=== PATIENT | male | born 1955 ===

== ENCOUNTER 2021-07-13 21:56 | Inpatient (IN) | payer MEDICARE, BC ==
--- NOTE | 2021-07-13 22:33 | EDM.PDOC ---
ED HPI GENERAL MEDICAL PROBLEM - General Stated Complaint: BLOOD IN STOOL, DIZZINESS, WEAKNESS Time Seen by Provider: 07/13/21 22:13 Source of Information: Reports: Patient History Limitations: Reports: No Limitations - History of Present Illness INITIAL COMMENTS - FREE TEXT/NARRATIVE: Nathan Donald is a 66-year-old male presents ambulatory with his during the [place] pandemic with 4 dark stools over the last day and a half. He now feels dizzy and lightheaded. He has had no fevers, runny nose, sore throat, cough, change in taste or smell. No chest pain or shortness of breath. He reports he feels lightheaded when he stands upright. Patient is anticoagulated his last INR was proxy 1 month ago. 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 He denies any history previously of GI bleed. He does not consume alcohol. He is on no recent steroids. He is not a current smoker. He has had a reported normal previous screening colonoscopy. Patient has any abdominal pain. He describes the stool is dark and black. No chest pain or shortness of breath. No headache, confusion or other acute complaints. Patient is Covid vaccinated. He is not any Covid symptoms. - Related Data Allergies Allergy/AdvReac Type Severity Reaction Status Date / Time No Known Allergies Allergy Verified 07/13/21 22:17 Home Meds: Home Meds Simvastatin 1 tab PO DAILY 07/13/21 [History] Tamsulosin [Flomax] 1 tab PO DAILY 07/13/21 [History] Warfarin [Coumadin] 0.5 tab PO ASDIRECTED 07/13/21 [History] Warfarin [Coumadin] 1 tab PO DAILY 07/13/21 [History] Past Medical History Cardiovascular History: Reports: High Cholesterol Respiratory History: Reports: PE Genitourinary History: Reports: BPH Social & Family History - Tobacco Use Tobacco Use Status *Q: Never Tobacco User ED ROS GENERAL - Review of Systems Review Of Systems: See Below Constitutional: Reports: No Symptoms, Weakness HEENT: Reports: No Symptoms Respiratory: Reports: No Symptoms Cardiovascular: Reports: No Symptoms GI/Abdominal: Reports: Black Stool, Melena. Denies: Abdominal Pain, Hematemesis, Nausea : Denies: Hematuria Musculoskeletal: Reports: No Symptoms Skin: Reports: No Symptoms Neurological: Reports: No Symptoms Psychiatric: Reports: No Symptoms Hematologic/Lymphatic: Reports: No Symptoms Immunologic: Reports: No Symptoms Free Text/Narrative/Comment: All other 10 systems are negative. ED EXAM, GI/ABD - Physical Exam Exam: See Below Exam Limited By: No Limitations General Appearance: Alert Eyes: Bilateral: Normal Appearance Ears: Normal External Exam Nose: Normal Inspection Throat/Mouth: Other (wearing eleuterio) Head: Normocephalic Neck: Normal Inspection Respiratory/Chest: No Respiratory Distress, Lungs Clear Cardiovascular: Normal Peripheral Pulses, No JVD, Tachycardia GI/Abdominal Exam: Normal Bowel Sounds, Soft, Non-Tender, No Distention, No Mass Rectal (Males) Exam: Normal Rectal Tone, Black Stool, Other (purple to black stool) Back Exam: Normal Inspection, Full Range of Motion Extremities: Normal Inspection, Normal Range of Motion, No Pedal Edema Neurological: Alert, Oriented, Normal Cognition, No Motor/Sensory Deficits Psychiatric: Normal Affect, Normal Mood Skin Exam: Warm, Dry, No Rash. No: Cyanosis Lymphatic: No Adenopathy #1 Interpretation EKG Date: 07/13/21 Time: 23:08 Rhythm: Other (sinus tachy) Rate (Beats/Min): 101 [place]: Normal P-Wave: Present QRS: Normal ST-T: Normal QT: Normal Comparison: NA - No Prior EKG Course - Vital Signs Text/Narrative:: History exam completed. Patient has dark black to purple stools on rectal examination. He is tachycardic. He is on Coumadin. Patient based on vital signs and history require inpatient admission for ongoing hydration he was typed and screened placed n.p.o. Anticipate the need for potential transfusion and correction of coagulopathy. We will treat him with IV Protonix. There is no history of hepatic disease or alcohol use or abuse to suggest variceal bleed. Patient had IV access obtained. He was placed n.p.o. He was placed on monitoring manager. A stat EKG is reviewed. Responded nicely to IV fluids and his heart rate improved prior to IV fluid ministration. 2346: Laboratory studies reviewed including hemoglobin and INR. I spoke with Mary Winter the admitting hospitalist who accepts admission. I ordered 5 mg of IV vitamin K. We will hold the patient's Coumadin and the admitting provider will coordinate with surgery for endoscopy. CLOtest is pending. Patient has no Covid symptoms at this time. [facility] bed. 00 15 a.m. on 07/14/2021. Hospitalist has accepted. Covid test is negative. Admit to med telemetry bed. Patient's been typed and screened. IV vitamin K administered. MDM: Patient presents with acute GI bleed in setting of long-term Coumadin use for remote DVT. Patient will require admission and serial hemoglobins I have started wityh correction of coagulopathy and anticipate potential transfusion. After ongoing resuscitation he would benefit from endoscopy which will becoordinated by admitting service with the on callsurgeon. Patient currently does not have indication for transfusion but may require transfusion if his hemoglobin continues to decrease. He has been typed and screened anticipating this. Benefit of Vit K vs risk reviewed. I suspect patient has a lower GI bleed. stools is purple in ED to dark but not black. 0018: admit to Tele bed: Mary Carpenter (in ED currently) accepts and has updated personnel administrator surgeon. Last Recorded V/S: Last Vital Signs Temp 36.2 C 07/13/21 22:26 Pulse 125 H 07/13/21 22:26 Resp 16 07/13/21 22:26 BP 107/68 07/13/21 22:26 Pulse Ox 97 07/13/21 22:26 - Orders/Labs/Meds Orders: Active Orders 24 hr Category Date Time Status OCCULT BLOOD SCREEN [OP] Urgent Lab 07/13/21 22:48 Ordered TYPE AND SCREEN [BBK] Stat Lab 07/13/21 23:05 Received Phytonadione [AquaMephyton] 5 mg Med 07/13/21 23:45 Active Sodium Chloride 0.9% [Normal Saline] 50 ml IV NOW Sodium Chloride 0.9% [Normal Saline] 500 ml Med 07/13/21 23:00 Active IV .BOLUS EKG 12 Lead [EK] Stat Ther 07/13/21 22:53 Ordered Medication Orders Sodium Chloride (Normal Saline) 500 mls @ 1,000 mls/hr IV .BOLUS MARTINA Last Admin: 07/13/21 23:19 Dose: 1,000 mls/hr Documented by: ASHUTOSH Phytonadione 5 mg/ Sodium (Chloride) 50.5 mls @ 100 mls/hr IV NOW ONE Stop: 07/14/21 00:15 Labs: Laboratory Tests 07/13/21 07/13/21 07/13/21 Range/Units 23:05 23:05 23:05 WBC 9.0 (4.5-11.0) K/uL RBC 3.18 L (4.30-5.90) M/uL Hgb 9.5 L (12.0-15.0) g/dL Hct 28.9 L (40.0-54.0) % MCV 91 (80-98) fL MCH 30 (27-31) pg MCHC 33 (32-36) % Plt Count 168 (150-400) K/uL Neut % (Auto) 66.8 H (36-66) % Lymph % (Auto) 23.2 L (24-44) % [place] % (Auto) 8.2 H (2-6) % Eos % (Auto) 1.4 L (2-4) % Baso % (Auto) 0.4 (0-1) % PT 28.9 H (9.5-12.0) sec INR 2.70 H (0.80-1.20) Sodium 138 L (140-148) mmol/L Potassium 4.0 (3.6-5.2) mmol/L Chloride 105 (100-108) mmol/L Carbon Dioxide 23 (21-32) mmol/L Anion Gap 14.0 (5.0-14.0) mmol/L BUN 37 H (7-18) mg/dL Creatinine 1.5 H (0.8-1.3) mg/dL Est Cr Clr Drug Dosing 46.87 mL/min Estimated GFR (MDRD) 47 L (>60) Glucose 126 H (74-106) mg/dL Calcium 7.9 L (8.5-10.1) mg/dL Total Bilirubin 0.2 (0.2-1.0) mg/dL AST 13 L (15-37) U/L ALT 23 (12-78) U/L Alkaline Phosphatase 48 (46-116) U/L Total Protein 5.5 L (6.4-8.2) g/dL Albumin 2.9 L (3.4-5.0) g/dL Globulin 2.6 (2.3-3.5) g/dL Albumin/Globulin Ratio 1.1 L (1.2-2.2) SARS CoV-2 RNA Rapid MARQUITA 07/13/21 Range/Units 23:05 WBC (4.5-11.0) K/uL RBC (4.30-5.90) M/uL Hgb (12.0-15.0) g/dL Hct (40.0-54.0) % MCV (80-98) fL MCH (27-31) pg MCHC (32-36) % Plt Count (150-400) K/uL Neut % (Auto) (36-66) % Lymph % (Auto) (24-44) % [place] % (Auto) (2-6) % Eos % (Auto) (2-4) % Baso % (Auto) (0-1) % PT (9.5-12.0) sec INR (0.80-1.20) Sodium (140-148) mmol/L Potassium (3.6-5.2) mmol/L Chloride (100-108) mmol/L Carbon Dioxide (21-32) mmol/L Anion Gap (5.0-14.0) mmol/L BUN (7-18) mg/dL Creatinine (0.8-1.3) mg/dL Est Cr Clr Drug Dosing mL/min Estimated GFR (MDRD) (>60) Glucose (74-106) mg/dL Calcium (8.5-10.1) mg/dL Total Bilirubin (0.2-1.0) mg/dL AST (15-37) U/L ALT (12-78) U/L Alkaline Phosphatase (46-116) U/L Total Protein (6.4-8.2) g/dL Albumin (3.4-5.0) g/dL Globulin (2.3-3.5) g/dL Albumin/Globulin Ratio (1.2-2.2) SARS CoV-2 RNA Rapid MARQUITA Negative Meds: Medications Generic Name Dose Route Start Last Admin Trade Name Remingtonq PRN Reason Stop Dose Admin Sodium Chloride 500 mls @ 1,000 mls/hr 07/13/21 23:00 07/13/21 23:19 Normal Saline IV 1,000 mls/hr .BOLUS MARTINA Administration Phytonadione 5 mg/ Sodium 50.5 mls @ 100 mls/hr 07/13/21 23:45 Chloride IV 07/14/21 00:15 NOW ONE Discontinued Medications Generic Name Dose Route Start Last Admin Trade Name Mamadou PRN Reason Stop Dose Admin Pantoprazole Sodium 40 mg 07/13/21 22:51 07/13/21 23:22 Pantoprazole 40 Mg Vial IVPUSH 07/13/21 22:52 40 mg ONETIME ONE Administration Departure - Departure Time of Disposition: 23:48 (mary carpenter, who is coordinating with surgery) Disposition: Admitted As Inpatient 66 Condition: Fair Clinical Impression: GI bleed, half-way (current) use of anticoagulants, Tachycardia - Discharge Information Sepsis Event Note (ED) - Evaluation Sepsis Screening Result: No Definite Risk - Focused Exam Vital Signs: Vital Signs Temp Pulse Resp BP Pulse Ox 07/13/21 22:26 36.2 C 125 H 16 107/68 97 07/13/21 22:10 36.2 C 125 H 16 107/68 97 - My Orders Last 24 Hours: My Active Orders 07/13/21 22:48 OCCULT BLOOD SCREEN [OP] Urgent 07/13/21 22:53 EKG 12 Lead [EK] Stat 07/13/21 23:00 Sodium Chloride 0.9% [Normal Saline] 500 ml IV .BOLUS 07/13/21 23:05 TYPE AND SCREEN [BBK] Stat 07/13/21 23:45 Phytonadione [AquaMephyton] 5 mg Sodium Chloride 0.9% [Normal Saline] 50 ml IV NOW - Assessment/Plan Last 24 Hours: My Active Orders 07/13/21 22:48 OCCULT BLOOD SCREEN [OP] Urgent 07/13/21 22:53 EKG 12 Lead [EK] Stat 07/13/21 23:00 Sodium Chloride 0.9% [Normal Saline] 500 ml IV .BOLUS 07/13/21 23:05 TYPE AND SCREEN [BBK] Stat 07/13/21 23:45 Phytonadione [AquaMephyton] 5 mg Sodium Chloride 0.9% [Normal Saline] 50 ml IV NOW
[2021-07-13] MEDS ORDERED: Pantoprazole 40 MG Vial IVPUSH ONE (22:51)
[2021-07-13] MEDS ORDERED: Sodium Chloride 0.9% 500 ML IV SCH (23:00)
[2021-07-13] MEDS ORDERED: Phytonadione 5 MG in Sodium Chloride 0.9% 50 ML IV ONE (23:45)
--- NOTE | 2021-07-14 00:31 | PCM.HP.2 ---
H&P History of Present Illness - General Date of Service: 07/13/21 Admit Problem/Dx: Admission Diagnosis/Problem Admission Diagnosis/Problem Gastrointestinal hemorrhage Source of Information: Patient, Family () History Limitations: Reports: No Limitations - History of Present Illness Initial Comments - Free Text/Narative: chief complaint: rectal bleed Copy ER note Nathan Donald is a 66-year-old male presents ambulatory with his during the COVID pandemic with 4 dark stools over the last day and a half. He now feels dizzy and lightheaded. He has had no fevers, runny nose, sore throat, cough, change in taste or smell. No chest pain or shortness of breath. He reports he feels lightheaded when he stands upright. Patient is anticoagulated his last INR 1 month ago. 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 He denies any history previously of GI bleed. He does not consume alcohol. He is on no recent steroids. He is not a current smoker. He has had a reported normal previous screening colonoscopy 4 years ago in [facility]. Patient denies any abdominal pain. He describes the stool is dark and black. No chest pain or shortness of breath. No headache, confusion or other acute complaints. Onset of Symptoms: Reports: Gradual Symptom Onset Date: 07/12/21 Duration of Symptoms: Reports: Day(s): Location: Reports: Generalized (weakness- ) Quality: Reports: Other (weakness, light headed) Improves with: Reports: None Worsens with: Reports: None Context: Reports: Other (multi black liquid stools x 2 days) Associated Symptoms: Reports: Weakness - Related Data Allergies/Adverse Reactions: Allergies Allergy/AdvReac Type Severity Reaction Status Date / Time No Known Allergies Allergy Verified 07/13/21 22:17 Home Medications: Home Meds Simvastatin 1 tab PO DAILY 07/13/21 [History] Tamsulosin [Flomax] 1 tab PO DAILY 07/13/21 [History] Warfarin [Coumadin] 0.5 tab PO ASDIRECTED 07/13/21 [History] Warfarin [Coumadin] 1 tab PO DAILY 07/13/21 [History] Past Medical History Cardiovascular History: Reports: High Cholesterol Respiratory History: Reports: PE Genitourinary History: Reports: BPH Social & Family History - Tobacco Use Tobacco Use Status *Q: Never Tobacco User - Living Situation & Occupation Living situation: Reports: Occupation: Retired (lives with in [place], [place]. has two children) H&P Review of Systems - Review of Systems: Review Of Systems: See Below General: Reports: Weakness HEENT: Reports: No Symptoms Pulmonary: Reports: No Symptoms Cardiovascular: Reports: No Symptoms Gastrointestinal: Reports: Black Stool (3 on Sat. & 4 on Wednesday), Diarrhea (multi liquid black stools) Genitourinary: Reports: No Symptoms Musculoskeletal: Reports: No Symptoms Skin: Reports: No Symptoms Psychiatric: Reports: No Symptoms Neurological: Reports: Weakness Hematologic/Lymphatic: Reports: No Symptoms Immunologic: Reports: No Symptoms Exam - Exam Exam: See Below - Vital Signs Vital Signs: Last Vital Signs Temp 97.1 F 07/13/21 22:26 Pulse 125 H 07/13/21 22:26 Resp 16 07/13/21 22:26 BP 107/68 07/13/21 22:26 Pulse Ox 97 07/13/21 22:26 Weight: 212 lb 3.2 oz - Exam Quality Assessment: DVT Prophylaxis General: Alert, Oriented, Cooperative, Other (neat and well groomed. pleasant) HEENT: PERRLA, Hearing Intact, Mucosa Moist & [place], Nares Patent, Normal Nasal Septum, Posterior Pharynx Clear, Conjunctiva Clear, EOMI, EACs Clear, TMs Clear Neck: Supple, Trachea Midline, 2 Lungs: Clear to Auscultation, Normal Respiratory Effort Cardiovascular: Regular Rate, Regular Rhythm GI/Abdominal Exam: Normal Bowel Sounds, Soft, Non-Tender, No Organomegaly, No Di stention, No Abnormal Bruit, No Mass, Pelvis Stable (Male) Exam: Deferred Rectal (Males) Exam: Deferred Back Exam: Normal Inspection, Full Range of Motion, NT Extremities: Normal Inspection, Normal Range of Motion, Non-Tender, No Pedal Edema, Normal Capillary Refill Peripheral Pulses: 2+: Radial (L), Radial (R), Dorsalis Pedis (L), Dorsalis Pedis (R) Skin: Warm, Dry, Intact Neurological: Cranial Nerves Intact, Reflexes Equal Bilateral Neuro Extensive - Mental Status: Alert, Oriented x3, Normal Mood/Affect, Normal Cognition Neuro Extensive - Motor, Sensory, Reflexes: CN II-XII Intact, Normal Gait, Normal Reflexes Psychiatric: Alert, Normal Affect, Normal Mood - Patient Data Lab Results Last 24 hrs: Laboratory Results - last 24 hr 07/13/21 07/13/21 07/13/21 Range/Units 23:05 23:05 23:05 WBC 9.0 (4.5-11.0) K/uL RBC 3.18 L (4.30-5.90) M/uL Hgb 9.5 L (12.0-15.0) g/dL Hct 28.9 L (40.0-54.0) % MCV 91 (80-98) fL MCH 30 (27-31) pg MCHC 33 (32-36) % Plt Count 168 (150-400) K/uL Neut % (Auto) 66.8 H (36-66) % Lymph % (Auto) 23.2 L (24-44) % [place] % (Auto) 8.2 H (2-6) % Eos % (Auto) 1.4 L (2-4) % Baso % (Auto) 0.4 (0-1) % PT 28.9 H (9.5-12.0) sec INR 2.70 H (0.80-1.20) Sodium 138 L (140-148) mmol/L Potassium 4.0 (3.6-5.2) mmol/L Chloride 105 (100-108) mmol/L Carbon Dioxide 23 (21-32) mmol/L Anion Gap 14.0 (5.0-14.0) mmol/L BUN 37 H (7-18) mg/dL Creatinine 1.5 H (0.8-1.3) mg/dL Est Cr Clr Drug Dosing 46.87 mL/min Estimated GFR (MDRD) 47 L (>60) Glucose 126 H (74-106) mg/dL Calcium 7.9 L (8.5-10.1) mg/dL Total Bilirubin 0.2 (0.2-1.0) mg/dL AST 13 L (15-37) U/L ALT 23 (12-78) U/L Alkaline Phosphatase 48 (46-116) U/L Total Protein 5.5 L (6.4-8.2) g/dL Albumin 2.9 L (3.4-5.0) g/dL Globulin 2.6 (2.3-3.5) g/dL Albumin/Globulin Ratio 1.1 L (1.2-2.2) SARS CoV-2 RNA Rapid MARQUITA 07/13/21 Range/Units 23:05 WBC (4.5-11.0) K/uL RBC (4.30-5.90) M/uL Hgb (12.0-15.0) g/dL Hct (40.0-54.0) % MCV (80-98) fL MCH (27-31) pg MCHC (32-36) % Plt Count (150-400) K/uL Neut % (Auto) (36-66) % Lymph % (Auto) (24-44) % [place] % (Auto) (2-6) % Eos % (Auto) (2-4) % Baso % (Auto) (0-1) % PT (9.5-12.0) sec INR (0.80-1.20) Sodium (140-148) mmol/L Potassium (3.6-5.2) mmol/L Chloride (100-108) mmol/L Carbon Dioxide (21-32) mmol/L Anion Gap (5.0-14.0) mmol/L BUN (7-18) mg/dL Creatinine (0.8-1.3) mg/dL Est Cr Clr Drug Dosing mL/min Estimated GFR (MDRD) (>60) Glucose (74-106) mg/dL Calcium (8.5-10.1) mg/dL Total Bilirubin (0.2-1.0) mg/dL AST (15-37) U/L ALT (12-78) U/L Alkaline Phosphatase (46-116) U/L Total Protein (6.4-8.2) g/dL Albumin (3.4-5.0) g/dL Globulin (2.3-3.5) g/dL Albumin/Globulin Ratio (1.2-2.2) SARS CoV-2 RNA Rapid MARQUITA Negative Result Diagrams: 07/13/21 23:05 07/13/21 23:05 Sepsis Event Note - Evaluation Sepsis Screening Result: No Definite Risk - Focused Exam Vital Signs: Vital Signs Temp Pulse Resp BP Pulse Ox 07/13/21 22:26 97.1 F 125 H 16 107/68 97 07/13/21 22:10 97.1 F 125 H 16 107/68 97 - Problem List (1) GI bleed SNOMED Code(s): 49881770 ICD Code: K92.2 - GASTROINTESTINAL HEMORRHAGE, UNSPECIFIED Status: Acute Priority: High Current Visit: Yes Qualifiers: GI bleed type/associated pathology: unspecified gastrointestinal hemorrhage type Qualified Code(s): K92.2 - Gastrointestinal hemorrhage, unspecified (2) nursing home (current) use of anticoagulants SNOMED Code(s): 589903501 ICD Code: Z79.01 - SKILLED NURSING (CURRENT) USE OF ANTICOAGULANTS Status: Acute Priority: High Current Visit: Yes Problem List Initiated/Reviewed/Updated: Yes Orders Last 24hrs: Active Orders 24 hr Category Date Time Status Patient Status Manage Transfer [TRANSFER] Routine ADT 07/13/21 23:53 Active OCCULT BLOOD SCREEN [OP] Urgent Lab 07/13/21 22:48 Ordered TYPE AND SCREEN [BBK] Stat Lab 07/13/21 23:05 Received Sodium Chloride 0.9% [Normal Saline] 500 ml Med 07/13/21 23:00 Active IV .BOLUS Resuscitation Status Routine Resus Stat 07/13/21 23:55 Ordered EKG 12 Lead [EK] Stat Ther 07/13/21 22:53 Ordered Medication Orders Sodium Chloride (Normal Saline) 500 mls @ 1,000 mls/hr IV .BOLUS MARTINA Last Admin: 07/13/21 23:19 Dose: 1,000 mls/hr Documented by: ASHUTOSH Assessment/Plan Comment:: ASSESSMENT / PLAN This is a 66 year old male present to the ER with his . They report on Wednesday he has 3 black diarrhea stools and 4 black stool on Wednesday, they came to the ER for evaluation when he got up from the chair and almost fainted. continue to have dizziness with standing. Denies any fever, chills, nausea, vomiting, chest pain or shortness of breath. He has been vaccinated for Covid. Last Colonoscopy 4 years ago in [facility] [place] which was negative. He had the colonoscopy because his Sister at age 64 years of colon cancer. ER Lab values = CBC WBC 9.0, hemoglobin 9.5, hct 28.9, plts 168 Chemistries Na 138, K+4.0, cl 105, anion gap 14, BUN 37, Cr 1.5, glucose 126, Co2 23, INR 2 ..70, PT 28.9 Plan admit for admission. Mr. and Mrs. Donald agree with plan of care. GI Bleed -Admit to [address] [place] [address] for further monitoring -Regular diet -IV Fluids Normal Saline at 125 mL per hour -medication for pain and nausea ordered -consult with Dr. Tuttle, Surgeon, continue plan of care. -Advise to notify nurses of any more dark stools -type and cross for blood products -And a.m. labs: CBC, BMP Chronic coagulations for PE x2 - this happed 15 years ago, has been on Coumadin since -hold Coumadin -IV vitamin K 5 mg given in ER -recheck INR/PT in am Maintenance issues -Orders home meds reviewed and ordered as appropriate -Nutrition: regular diet -[place] catheter not indicated at this time -DVT: SCD -PPI; IV Protonix 40mg every 12 hours CODE STATUS: FULL Admission status: Admit to [address] [place] [address] This Patient is Admitted for Inpatient Services and is Medically Appropriate and Meets Medical Necessity for Inpatient Admission. I Reasonably Expect the Patient will Require Inpatient Services that Span a Period of Over 2 Midnights. My Rationale for Medically Necessary Inpatient Care will be Found in the Admission History & Physical and Progress Notes. I Reasonably Expect the Patient to be Discharged or Transferred within 96 Hours After Admission to this Critical Access Hospital. Disposition: home with Primary care provider: Raza Blair NP Hospitalist: Dr. Lucas Surgery Service- Dr. Tuttle - Mortality Measure Prognosis:: Good
[2021-07-14] MEDS ORDERED: Ondansetron 4 MG Tab.DIS PO PRN (00:34)
[2021-07-14] MEDS ORDERED: Ondansetron 4 MG/2 ML SDV IV PRN (00:34)
[2021-07-14] MEDS ORDERED: Albuterol 0.083% 2.5 MG/3 ML Neb Soln NEB PRN (00:34)
[2021-07-14] MEDS ORDERED: Acetaminophen 325 MG Tab PO PRN (00:34)
[2021-07-14] MEDS ORDERED: Sodium Chloride 0.9% 1,000 ML IV SCH (00:34)
[2021-07-14] MEDS ORDERED: Morphine 2 MG/ML SYRINGE IVPUSH PRN (00:34)
[2021-07-14] MEDS ORDERED: Propofol 200 MG/20 ML SDV ONE (08:44)
[2021-07-14] MEDS ORDERED: Pantoprazole 40 MG Vial IV SCH ×2 (09:00→09:10)
[2021-07-14] MEDS: Tamsulosin 0.4 MG Cap.ER PO SCH (09:50)
[2021-07-14] MEDS: Pravastatin 20 MG Tab PO SCH (09:50)
[2021-07-14] MEDS ORDERED: Bisacodyl 5 MG Tab PO ONE (13:33)
[2021-07-14] MEDS ORDERED: Polyethylene Glycol 3350 Powder 238 GM Bot PO ONE (13:33)
--- NOTE | 2021-07-14 13:35 | PCM.PN ---
- General Info Date of Service: 07/14/21 Subjective Update: Patient had declining blood pressures and some nausea/dizziness this morning. He has not had any recurrence of bleeding since admission. EGD this morning was unremarkable. Hemoglobin level has drifted down further since admission. No abdominal pain. No history of GI bleeding. INR was still supratherapeutic. Patient did receive a unit of blood this morning because of the hypotension and also received 2 units of fresh frozen plasma. Functional Status: Reports: Pain Controlled - Review of Systems General: Denies: Fever Gastrointestinal: Denies: Abdominal Pain - Patient Data Vitals - Most Recent: Last Vital Signs Temp 34.7 C L 07/14/21 13:15 Pulse 106 H 07/14/21 13:15 Resp 18 07/14/21 13:15 BP 107/64 07/14/21 13:15 Pulse Ox 98 07/14/21 13:15 Weight - Most Recent: 96.162 kg I&O - Last 24 Hours: Intake & Output 07/13/21 07/14/21 07/14/21 22:59 06:59 14:59 Intake Total 550 1404 Output Total 225 Balance 550 1179 Lab Results Last 24 Hours: Laboratory Results - last 24 hr 07/13/21 07/13/21 07/13/21 Range/Units 23:05 23:05 23:05 WBC 9.0 (4.5-11.0) K/uL RBC 3.18 L (4.30-5.90) M/uL Hgb 9.5 L (12.0-15.0) g/dL Hct 28.9 L (40.0-54.0) % MCV 91 (80-98) fL MCH 30 (27-31) pg MCHC 33 (32-36) % Plt Count 168 (150-400) K/uL Neut % (Auto) 66.8 H (36-66) % Lymph % (Auto) 23.2 L (24-44) % Power % (Auto) 8.2 H (2-6) % Eos % (Auto) 1.4 L (2-4) % Baso % (Auto) 0.4 (0-1) % PT 28.9 H (9.5-12.0) sec INR 2.70 H (0.80-1.20) Sodium (140-148) mmol/L Potassium (3.6-5.2) mmol/L Chloride (100-108) mmol/L Carbon Dioxide (21-32) mmol/L Anion Gap (5.0-14.0) mmol/L BUN (7-18) mg/dL Creatinine (0.8-1.3) mg/dL Est Cr Clr Drug Dosing mL/min Estimated GFR (MDRD) (>60) Glucose (74-106) mg/dL Calcium (8.5-10.1) mg/dL Total Bilirubin (0.2-1.0) mg/dL AST (15-37) U/L ALT (12-78) U/L Alkaline Phosphatase (46-116) U/L Total Protein (6.4-8.2) g/dL Albumin (3.4-5.0) g/dL Globulin (2.3-3.5) g/dL Albumin/Globulin Ratio (1.2-2.2) SARS CoV-2 RNA Rapid [facility]QUITA Blood Type O NEGATIVE Gel Antibody Screen Negative Crossmatch See Detail 07/13/21 07/13/21 07/14/21 Range/Units 23:05 23:05 04:25 WBC 10.0 (4.5-11.0) K/uL RBC 2.59 L (4.30-5.90) M/uL Hgb 7.7 L (12.0-15.0) g/dL Hct 23.5 L (40.0-54.0) % MCV 91 (80-98) fL MCH 30 (27-31) pg MCHC 33 (32-36) % Plt Count 136 L (150-400) K/uL Neut % (Auto) 68.9 H (36-66) % Lymph % (Auto) 23.2 L (24-44) % Power % (Auto) 6.3 H (2-6) % Eos % (Auto) 1.1 L (2-4) % Baso % (Auto) 0.5 (0-1) % PT (9.5-12.0) sec INR (0.80-1.20) Sodium 138 L (140-148) mmol/L Potassium 4.0 (3.6-5.2) mmol/L Chloride 105 (100-108) mmol/L Carbon Dioxide 23 (21-32) mmol/L Anion Gap 14.0 (5.0-14.0) mmol/L BUN 37 H (7-18) mg/dL Creatinine 1.5 H (0.8-1.3) mg/dL Est Cr Clr Drug Dosing 46.87 mL/min Estimated GFR (MDRD) 47 L (>60) Glucose 126 H (74-106) mg/dL Calcium 7.9 L (8.5-10.1) mg/dL Total Bilirubin 0.2 (0.2-1.0) mg/dL AST 13 L (15-37) U/L ALT 23 (12-78) U/L Alkaline Phosphatase 48 (46-116) U/L Total Protein 5.5 L (6.4-8.2) g/dL Albumin 2.9 L (3.4-5.0) g/dL Globulin 2.6 (2.3-3.5) g/dL Albumin/Globulin Ratio 1.1 L (1.2-2.2) SARS CoV-2 RNA Rapid MARQUITA Negative Blood Type Gel Antibody Screen Crossmatch 07/14/21 07/14/21 Range/Units 04:25 04:25 WBC (4.5-11.0) K/uL RBC (4.30-5.90) M/uL Hgb (12.0-15.0) g/dL Hct (40.0-54.0) % MCV (80-98) fL MCH (27-31) pg MCHC (32-36) % Plt Count (150-400) K/uL Neut % (Auto) (36-66) % Lymph % (Auto) (24-44) % Power % (Auto) (2-6) % Eos % (Auto) (2-4) % Baso % (Auto) (0-1) % PT 19.6 H (9.5-12.0) sec INR 1.82 H (0.80-1.20) Sodium 138 L (140-148) mmol/L Potassium 4.0 (3.6-5.2) mmol/L Chloride 109 H (100-108) mmol/L Carbon Dioxide 22 (21-32) mmol/L Anion Gap 11.0 (5.0-14.0) mmol/L BUN 37 H (7-18) mg/dL Creatinine 1.3 (0.8-1.3) mg/dL Est Cr Clr Drug Dosing 54.08 mL/min Estimated GFR (MDRD) 55 L (>60) Glucose 116 H (74-106) mg/dL Calcium 7.5 L (8.5-10.1) mg/dL Total Bilirubin (0.2-1.0) mg/dL AST (15-37) U/L ALT (12-78) U/L Alkaline Phosphatase (46-116) U/L Total Protein (6.4-8.2) g/dL Albumin (3.4-5.0) g/dL Globulin (2.3-3.5) g/dL Albumin/Globulin Ratio (1.2-2.2) SARS CoV-2 RNA Rapid [facility]QUITA Blood Type Gel Antibody Screen Crossmatch Goldy Results Last 24 Hours: Microbiology 07/14/21 05:50 Occult Blood - Final Stool / Feces Med Orders - Current: Current Medications Acetaminophen (Acetaminophen 325 Mg Tab) 650 mg PO Q4H PRN PRN Reason: Pain (Mild 1-3)/fever Albuterol (Albuterol 0.083% 2.5 Mg/3 Ml Neb Soln) 2.5 mg NEB Q4H PRN PRN Reason: Shortness Of Breath/wheezing Bisacodyl (Bisacodyl 5 Mg Tab) 10 mg PO ONETIME ONE Stop: 07/14/21 13:34 Sodium Chloride (Normal Saline) 1,000 mls @ 75 mls/hr IV ASDIRECTED [facility] Morphine Sulfate (Morphine 2 Mg/Ml Syringe) 2 mg IVPUSH Q2H PRN PRN Reason: Pain (severe 7-10) Ondansetron HCl (Ondansetron 4 Mg/2 Ml Sdv) 4 mg IV Q4H PRN PRN Reason: Nausea/Vomiting Ondansetron HCl (Ondansetron 4 Mg Tab.Dis) 4 mg PO Q6H PRN PRN Reason: Nausea able to take PO Polyethylene Glycol (Polyethylene Glycol 3350 Powder 238 Gm Bot) 238 gm PO ONETIME ONE Stop: 07/14/21 13:34 Pravastatin Sodium (Pravastatin 20 Mg Tab) 20 mg PO DAILY [facility] Last Admin: 07/14/21 09:50 Dose: 20 mg Documented by: Tamsulosin HCl (Tamsulosin 0.4 Mg Cap.Er) 0.4 mg PO DAILY [facility] Last Admin: 07/14/21 09:50 Dose: 0.4 mg Documented by: Discontinued Medications Sodium Chloride (Normal Saline) 500 mls @ 1,000 mls/hr IV .BOLUS [facility] Last Admin: 07/13/21 23:19 Dose: 1,000 mls/hr Documented by: Phytonadione 5 mg/ Sodium (Chloride) 50.5 mls @ 100 mls/hr IV NOW ONE Stop: 07/14/21 00:15 Last Admin: 07/14/21 00:40 Dose: 100 mls/hr Documented by: Sodium Chloride (Normal Saline) 1,000 mls @ 125 mls/hr IV ASDIRECTED [facility] Last Admin: 07/14/21 08:33 Dose: 125 mls/hr Documented by: Pantoprazole Sodium (Pantoprazole 40 Mg Vial) 40 mg IVPUSH ONETIME ONE Stop: 07/13/21 22:52 Last Admin: 07/13/21 23:22 Dose: 40 mg Documented by: Pantoprazole Sodium (Pantoprazole 40 Mg Vial) 40 mg IV Q12H [facility] Last Admin: 07/14/21 08:34 Dose: 40 mg Documented by: Propofol (Propofol 200 Mg/20 Ml Sdv) Confirm Administered Dose 200 mg .ROUTE .STK-MED ONE Stop: 07/14/21 08:45 - Exam Quality Assessment: No: Supplemental Oxygen General: Alert, Oriented, Cooperative, No Acute Distress Lungs: Normal Respiratory Effort GI/Abdominal Exam: Soft, No Distention Extremities: No Pedal Edema Skin: Warm, Dry Psy/Mental Status: Alert, Normal Affect - Patient Data Lab Results Last 24 hrs: Laboratory Results - last 24 hr 07/13/21 07/13/21 07/13/21 Range/Units 23:05 23:05 23:05 WBC 9.0 (4.5-11.0) K/uL RBC 3.18 L (4.30-5.90) M/uL Hgb 9.5 L (12.0-15.0) g/dL Hct 28.9 L (40.0-54.0) % MCV 91 (80-98) fL MCH 30 (27-31) pg MCHC 33 (32-36) % Plt Count 168 (150-400) K/uL Neut % (Auto) 66.8 H (36-66) % Lymph % (Auto) 23.2 L (24-44) % Power % (Auto) 8.2 H (2-6) % Eos % (Auto) 1.4 L (2-4) % Baso % (Auto) 0.4 (0-1) % PT 28.9 H (9.5-12.0) sec INR 2.70 H (0.80-1.20) Sodium (140-148) mmol/L Potassium (3.6-5.2) mmol/L Chloride (100-108) mmol/L Carbon Dioxide (21-32) mmol/L Anion Gap (5.0-14.0) mmol/L BUN (7-18) mg/dL Creatinine (0.8-1.3) mg/dL Est Cr Clr Drug Dosing mL/min Estimated GFR (MDRD) (>60) Glucose (74-106) mg/dL Calcium (8.5-10.1) mg/dL Total Bilirubin (0.2-1.0) mg/dL AST (15-37) U/L ALT (12-78) U/L Alkaline Phosphatase (46-116) U/L Total Protein (6.4-8.2) g/dL Albumin (3.4-5.0) g/dL Globulin (2.3-3.5) g/dL Albumin/Globulin Ratio (1.2-2.2) SARS CoV-2 RNA Rapid [facility] Blood Type O NEGATIVE Gel Antibody Screen Negative Crossmatch See Detail 07/13/21 07/13/21 07/14/21 Range/Units 23:05 23:05 04:25 WBC 10.0 (4.5-11.0) K/uL RBC 2.59 L (4.30-5.90) M/uL Hgb 7.7 L (12.0-15.0) g/dL Hct 23.5 L (40.0-54.0) % MCV 91 (80-98) fL MCH 30 (27-31) pg MCHC 33 (32-36) % Plt Count 136 L (150-400) K/uL Neut % (Auto) 68.9 H (36-66) % Lymph % (Auto) 23.2 L (24-44) % Power % (Auto) 6.3 H (2-6) % Eos % (Auto) 1.1 L (2-4) % Baso % (Auto) 0.5 (0-1) % PT (9.5-12.0) sec INR (0.80-1.20) Sodium 138 L (140-148) mmol/L Potassium 4.0 (3.6-5.2) mmol/L Chloride 105 (100-108) mmol/L Carbon Dioxide 23 (21-32) mmol/L Anion Gap 14.0 (5.0-14.0) mmol/L BUN 37 H (7-18) mg/dL Creatinine 1.5 H (0.8-1.3) mg/dL Est Cr Clr Drug Dosing 46.87 mL/min Estimated GFR (MDRD) 47 L (>60) Glucose 126 H (74-106) mg/dL Calcium 7.9 L (8.5-10.1) mg/dL Total Bilirubin 0.2 (0.2-1.0) mg/dL AST 13 L (15-37) U/L ALT 23 (12-78) U/L Alkaline Phosphatase 48 (46-116) U/L Total Protein 5.5 L (6.4-8.2) g/dL Albumin 2.9 L (3.4-5.0) g/dL Globulin 2.6 (2.3-3.5) g/dL Albumin/Globulin Ratio 1.1 L (1.2-2.2) SARS CoV-2 RNA Rapid [facility] Negative Blood Type Gel Antibody Screen Crossmatch 07/14/21 07/14/21 Range/Units 04:25 04:25 WBC (4.5-11.0) K/uL RBC (4.30-5.90) M/uL Hgb (12.0-15.0) g/dL Hct (40.0-54.0) % MCV (80-98) fL MCH (27-31) pg MCHC (32-36) % Plt Count (150-400) K/uL Neut % (Auto) (36-66) % Lymph % (Auto) (24-44) % Power % (Auto) (2-6) % Eos % (Auto) (2-4) % Baso % (Auto) (0-1) % PT 19.6 H (9.5-12.0) sec INR 1.82 H (0.80-1.20) Sodium 138 L (140-148) mmol/L Potassium 4.0 (3.6-5.2) mmol/L Chloride 109 H (100-108) mmol/L Carbon Dioxide 22 (21-32) mmol/L Anion Gap 11.0 (5.0-14.0) mmol/L BUN 37 H (7-18) mg/dL Creatinine 1.3 (0.8-1.3) mg/dL Est Cr Clr Drug Dosing 54.08 mL/min Estimated GFR (MDRD) 55 L (>60) Glucose 116 H (74-106) mg/dL Calcium 7.5 L (8.5-10.1) mg/dL Total Bilirubin (0.2-1.0) mg/dL AST (15-37) U/L ALT (12-78) U/L Alkaline Phosphatase (46-116) U/L Total Protein (6.4-8.2) g/dL Albumin (3.4-5.0) g/dL Globulin (2.3-3.5) g/dL Albumin/Globulin Ratio (1.2-2.2) SARS CoV-2 RNA Rapid [facility] Blood Type Gel Antibody Screen Crossmatch Result Diagrams: 07/14/21 04:25 07/14/21 04:25 Goldy Results Last 24 hrs: Microbiology 07/14/21 05:50 Occult Blood - Final Stool / Feces Sepsis Event Note - Evaluation Sepsis Screening Result: No Definite Risk - Focused Exam Vital Signs: Vital Signs Temp Temp Pulse Resp BP Pulse Ox 07/14/21 13:15 34.7 C L 106 H 18 107/64 98 07/14/21 12:45 34.6 C L 106 H 16 111/66 97 07/14/21 12:30 34.6 C L 103 H 16 101/59 L 98 07/14/21 12:15 34.5 C L 103 H 18 108/62 97 07/14/21 12:00 34.6 C L 105 H 18 109/78 96 07/14/21 11:43 34.6 C L 105 H 18 101/58 L 96 07/14/21 11:30 34.5 C L 108 H 16 99/54 L 98 07/14/21 11:15 34.6 C L 106 H 18 109/94 H 95 07/14/21 11:00 34.9 C L 107 H 18 111/57 L 98 07/14/21 10:33 34.7 C L 97 16 105/69 96 07/14/21 10:15 34.6 C L 97 16 102/61 98 07/14/21 10:00 34.6 C L 97 16 97/63 94 L 07/14/21 09:40 35.1 C L 93 16 112/65 95 07/14/21 09:20 36.1 C 88 19 90/60 100 07/14/21 09:15 91 19 91/61 100 07/14/21 09:10 102 H 20 89/48 L 100 07/14/21 09:05 90 15 83/51 L 100 07/14/21 09:00 36.1 C 19 L 19 83/50 L 100 07/14/21 08:00 93 18 103/66 97 07/14/21 07:15 90/60 07/14/21 07:00 35.2 C L 98 16 91/76 95 07/14/21 06:03 90 07/14/21 05:50 122 H 16 130/74 100 07/14/21 02:00 35.3 C L 109 H 16 109/66 97 - Problem List Review Problem List Initiated/Reviewed/Updated: Yes - My Orders Last 24 Hours: My Active Orders 07/14/21 08:14 RED BLOOD CELLS LP [BBK] Routine Transfuse Fresh Frozen Plasma [COMM] Urgent Transfuse Red Blood Cells [COMM] Urgent 07/14/21 08:37 FRESH FROZEN PLASMA [BBK] Routine 07/14/21 13:33 bisacodyL [Dulcolax] 10 mg PO ONETIME ONE polyethylene glycoL 3350 [MiraLAX] 238 gm PO ONETIME ONE 07/14/21 14:00 Sodium Chloride 0.9% [Normal Saline] 1,000 ml IV ASDIRECTED 07/14/21 Dinner Clear Liquid Diet [DIET] NPO After Midnight [Nothing per Oral After Midnight Diet] [DIET] 07/14/21 18:00 HGB [HEMOGLOBIN] [HEME] Routine 07/15/21 05:00 BASIC METABOLIC PANEL,BMP [CHEM] Timed CBC W/O DIFF,HEMOGRAM [HEME] Timed (1) - Plan Plan:: ASSESSMENT / PLAN - Acute gastrointestinal hemorrhage-complicated by anemia due to blood loss. EGD unremarkable this morning. Suspect lower GI bleeding in the setting of supratherapeutic INR. INR still slightly elevated so we did receive 2 units of fresh frozen plasma as well as a unit of blood with hemoglobin less than 8 and hypotension despite volume resuscitation. -Clear liquids this afternoon, nothing by mouth after midnight -Gentle fluids -Colonoscopy prep today and endoscopy in the morning -Recheck hemoglobin this evening and again in the morning -CT scan of the abdomen and pelvis if colonoscopy is unremarkable Chronic anti-coagulation for PE x2-remote history with chronic anticoagulation. INR still elevated despite vitamin K last night. He has received 2 units of fresh frozen plasma. -hold Coumadin -recheck INR/PT in am Maintenance issues -Nutrition-clear liquids today, nothing by mouth after midnight -DVT: SCD -GI; not indicated, EGD negative Disposition: home with Hu Rios MD
[2021-07-14] MEDS: Sodium Chloride 0.9% 1,000 ML IV SCH (14:51)
[2021-07-15] MEDS: Sodium Chloride 0.9% 1,000 ML IV SCH (04:54)
[2021-07-15] MEDS: Potassium Chloride 20 MEQ, Lidocaine 1% 2 ML in Sodium Chloride 0.9% 100 ML IV SCH ×2 (06:38→06:39)
[2021-07-15] MEDS ORDERED: Midazolam 1 MG/ML 2 ML SDV ONE ×2 (07:24→15:52)
[2021-07-15] MEDS ORDERED: fentaNYL 100 MCG/2 ML SDV ONE ×2 (07:24→15:52)
[2021-07-15] MEDS ORDERED: Propofol 200 MG/20 ML SDV ONE ×2 (07:25→15:51)
--- NOTE | 2021-07-15 07:27 | PCM.PN ---
- General Info Date of Service: 07/15/21 Subjective Update: No acute events overnight. He did have some bloody stool yesterday but none overnight. Tolerated the colonoscopy prep. No abdominal pain or nausea. No fevers. No shortness of breath or dizziness. Hemoglobin level down to 7.1 again today. Potassium little low. Functional Status: Reports: Pain Controlled - Review of Systems General: Denies: Fever Gastrointestinal: Denies: Abdominal Pain - Patient Data Vitals - Most Recent: Last Vital Signs Temp 35.4 C L 07/15/21 07:20 Pulse 83 07/15/21 07:20 Resp 16 07/15/21 07:20 BP 119/75 07/15/21 07:20 Pulse Ox 97 07/15/21 07:19 Weight - Most Recent: 96.162 kg I&O - Last 24 Hours: Intake & Output 07/14/21 07/15/21 07/15/21 22:59 06:59 14:59 Intake Total 4000 0 Output Total 350 300 Balance 3650 -300 Lab Results Last 24 Hours: Laboratory Results - last 24 hr 07/13/21 07/14/21 07/15/21 Range/Units 23:05 18:00 04:15 WBC 6.4 (4.5-11.0) K/uL RBC 2.41 L (4.30-5.90) M/uL Hgb 7.8 L 7.1 L (12.0-15.0) g/dL Hct 21.8 L (40.0-54.0) % MCV 91 (80-98) fL MCH 30 (27-31) pg MCHC 33 (32-36) % Plt Count 125 L (150-400) K/uL Sodium (140-148) mmol/L Potassium (3.6-5.2) mmol/L Chloride (100-108) mmol/L Carbon Dioxide (21-32) mmol/L Anion Gap (5.0-14.0) mmol/L BUN (7-18) mg/dL Creatinine (0.8-1.3) mg/dL Est Cr Clr Drug Dosing mL/min Estimated GFR (MDRD) (>60) Glucose (74-106) mg/dL Calcium (8.5-10.1) mg/dL Blood Type O NEGATIVE Gel Antibody Screen Negative Crossmatch See Detail 07/15/21 Range/Units 04:15 WBC (4.5-11.0) K/uL RBC (4.30-5.90) M/uL Hgb (12.0-15.0) g/dL Hct (40.0-54.0) % MCV (80-98) fL MCH (27-31) pg MCHC (32-36) % Plt Count (150-400) K/uL Sodium 143 (140-148) mmol/L Potassium 3.4 L (3.6-5.2) mmol/L Chloride 111 H (100-108) mmol/L Carbon Dioxide 25 (21-32) mmol/L Anion Gap 10.4 (5.0-14.0) mmol/L BUN 18 D (7-18) mg/dL Creatinine 1.0 (0.8-1.3) mg/dL Est Cr Clr Drug Dosing 70.30 mL/min Estimated GFR (MDRD) > 60 (>60) Glucose 91 (74-106) mg/dL Calcium 7.6 L (8.5-10.1) mg/dL Blood Type Gel Antibody Screen Crossmatch Goldy Results Last 24 Hours: Microbiology 07/14/21 05:50 Occult Blood - Final Stool / Feces Med Orders - Current: Current Medications Acetaminophen (Acetaminophen 325 Mg Tab) 650 mg PO Q4H PRN PRN Reason: Pain (Mild 1-3)/fever Last Admin: 07/14/21 17:27 Dose: 650 mg Documented by: Albuterol (Albuterol 0.083% 2.5 Mg/3 Ml Neb Soln) 2.5 mg NEB Q4H PRN PRN Reason: Shortness Of Breath/wheezing Sodium Chloride (Normal Saline) 1,000 mls @ 75 mls/hr IV ASDIRECTED [facility] Last Admin: 07/15/21 04:54 Dose: 75 mls/hr Documented by: Potassium Chloride 20 meq/Lidocaine HCl 2 ml/ Sodium Chloride 112 mls @ 50 mls/hr IV Q2H [facility] Stop: 07/15/21 07:44 Last Admin: 07/15/21 06:39 Dose: Not Given Documented by: Morphine Sulfate (Morphine 2 Mg/Ml Syringe) 2 mg IVPUSH Q2H PRN PRN Reason: Pain (severe 7-10) Ondansetron HCl (Ondansetron 4 Mg/2 Ml Sdv) 4 mg IV Q4H PRN PRN Reason: Nausea/Vomiting Last Admin: 07/14/21 17:35 Dose: 4 mg Documented by: Ondansetron HCl (Ondansetron 4 Mg Tab.Dis) 4 mg PO Q6H PRN PRN Reason: Nausea able to take PO Pravastatin Sodium (Pravastatin 20 Mg Tab) 20 mg PO DAILY COUNT INCLUDES [facility] Last Admin: 07/14/21 09:50 Dose: 20 mg Documented by: Tamsulosin HCl (Tamsulosin 0.4 Mg Cap.Er) 0.4 mg PO DAILY COUNT INCLUDES THE [facility] Last Admin: 07/14/21 09:50 Dose: 0.4 mg Documented by: Discontinued Medications Bisacodyl (Bisacodyl 5 Mg Tab) 10 mg PO ONETIME ONE Stop: 07/14/21 13:34 Last Admin: 07/14/21 14:08 Dose: 10 mg Documented by: Sodium Chloride (Normal Saline) 500 mls @ 1,000 mls/hr IV .BOLUS COUNT INCLUDES THE [facility] Last Admin: 07/13/21 23:19 Dose: 1,000 mls/hr Documented by: Phytonadione 5 mg/ Sodium (Chloride) 50.5 mls @ 100 mls/hr IV NOW ONE Stop: 07/14/21 00:15 Last Admin: 07/14/21 00:40 Dose: 100 mls/hr Documented by: Sodium Chloride (Normal Saline) 1,000 mls @ 125 mls/hr IV ASDIRECTED COUNT INCLUDES THE [facility] Last Admin: 07/14/21 08:33 Dose: 125 mls/hr Documented by: Pantoprazole Sodium (Pantoprazole 40 Mg Vial) 40 mg IVPUSH ONETIME ONE Stop: 07/13/21 22:52 Last Admin: 07/13/21 23:22 Dose: 40 mg Documented by: Pantoprazole Sodium (Pantoprazole 40 Mg Vial) 40 mg IV Q12H COUNT INCLUDES THE [facility] Last Admin: 07/14/21 08:34 Dose: 40 mg Documented by: Polyethylene Glycol (Polyethylene Glycol 3350 Powder 238 Gm Bot) 238 gm PO ONETIME ONE Stop: 07/14/21 13:34 Last Admin: 07/14/21 14:08 Dose: 238 gm Documented by: Propofol (Propofol 200 Mg/20 Ml Sdv) Confirm Administered Dose 200 mg .ROUTE .STK-MED ONE Stop: 09/06/21 08:45 - Exam Quality Assessment: No: Supplemental Oxygen General: Alert, Oriented, Cooperative, No Acute Distress Lungs: Normal Respiratory Effort Cardiovascular: Regular Rate, Regular Rhythm GI/Abdominal Exam: Soft, No Distention Extremities: No Pedal Edema Psy/Mental Status: Alert, Normal Affect - Patient Data Lab Results Last 24 hrs: Laboratory Results - last 24 hr 07/13/21 07/14/21 07/15/21 Range/Units 23:05 18:00 04:15 WBC 6.4 (4.5-11.0) K/uL RBC 2.41 L (4.30-5.90) M/uL Hgb 7.8 L 7.1 L (12.0-15.0) g/dL Hct 21.8 L (40.0-54.0) % MCV 91 (80-98) fL MCH 30 (27-31) pg MCHC 33 (32-36) % Plt Count 125 L (150-400) K/uL Sodium (140-148) mmol/L Potassium (3.6-5.2) mmol/L Chloride (100-108) mmol/L Carbon Dioxide (21-32) mmol/L Anion Gap (5.0-14.0) mmol/L BUN (7-18) mg/dL Creatinine (0.8-1.3) mg/dL Est Cr Clr Drug Dosing mL/min Estimated GFR (MDRD) (>60) Glucose (74-106) mg/dL Calcium (8.5-10.1) mg/dL Blood Type O NEGATIVE Gel Antibody Screen Negative Crossmatch See Detail 07/15/21 Range/Units 04:15 WBC (4.5-11.0) K/uL RBC (4.30-5.90) M/uL Hgb (12.0-15.0) g/dL Hct (40.0-54.0) % MCV (80-98) fL MCH (27-31) pg MCHC (32-36) % Plt Count (150-400) K/uL Sodium 143 (140-148) mmol/L Potassium 3.4 L (3.6-5.2) mmol/L Chloride 111 H (100-108) mmol/L Carbon Dioxide 25 (21-32) mmol/L Anion Gap 10.4 (5.0-14.0) mmol/L BUN 18 D (7-18) mg/dL Creatinine 1.0 (0.8-1.3) mg/dL Est Cr Clr Drug Dosing 70.30 mL/min Estimated GFR (MDRD) > 60 (>60) Glucose 91 (74-106) mg/dL Calcium 7.6 L (8.5-10.1) mg/dL Blood Type Gel Antibody Screen Crossmatch Result Diagrams: 07/15/21 04:15 07/15/21 04:15 Goldy Results Last 24 hrs: Microbiology 07/14/21 05:50 Occult Blood - Final Stool / Feces Sepsis Event Note - Evaluation Sepsis Screening Result: No Definite Risk - Focused Exam Vital Signs: Vital Signs Temp Temp Temp Pulse Resp BP Pulse Ox 07/15/21 07:20 35.4 C L 83 16 119/75 07/15/21 07:19 35.4 C L 83 16 119/75 97 07/15/21 07:17 35.4 C L 83 16 123/66 07/15/21 06:50 35.4 C L 81 16 113/69 07/15/21 06:34 35.6 C L 81 16 117/70 94 L 07/15/21 06:16 35.4 C L 87 16 114/66 93 L 07/15/21 02:24 35.8 C L 94 18 110/64 95 07/14/21 22:32 35.3 C L 95 18 109/58 L 95 07/14/21 19:26 35.5 C L 94 16 125/68 97 - Problem List Review Problem List Initiated/Reviewed/Updated: Yes - My Orders Last 24 Hours: My Active Orders 07/14/21 08:14 RED BLOOD CELLS LP [BBK] Routine Transfuse Fresh Frozen Plasma [COMM] Urgent Transfuse Red Blood Cells [COMM] Urgent 07/14/21 08:37 FRESH FROZEN PLASMA [BBK] Routine 07/14/21 13:37 Discontinue Telemetry Monitoring [Cardiac Monitoring Discontinue] [RC] Click to Edit 07/14/21 14:00 Sodium Chloride 0.9% [Normal Saline] 1,000 ml IV ASDIRECTED 07/14/21 Dinner NPO After Midnight [Nothing per Oral After Midnight Diet] [DIET] 07/15/21 05:39 Transfuse Red Blood Cells [COMM] Routine 07/15/21 05:43 Transfuse Red Blood Cells [COMM] Routine 07/15/21 05:45 Potassium Chloride 20 meq Lidocaine 1% [Xylocaine 1%] 2 ml Sodium Chloride 0.9% [Normal Saline] 100 ml IV Q2H 07/15/21 18:00 HGB [HEMOGLOBIN] [HEME] Timed 07/16/21 05:00 BASIC METABOLIC PANEL,BMP [CHEM] Timed CBC W/O DIFF,HEMOGRAM [HEME] Timed (1) INR,PT,PROTHROMBIN TIME [COAG] Timed - Plan Plan:: ASSESSMENT / PLAN - Acute gastrointestinal hemorrhage-complicated by anemia due to blood loss. EGD unremarkable. Suspect lower GI bleeding in the setting of supratherapeutic INR. He has received vitamin K and 2 units of fresh frozen plasma. Bleeding seems to have stopped at this time but hemoglobin is down to around 7 again today. -Transfuse 1 unit of blood -Nothing by mouth until after the procedure -Gentle fluids -Colonoscopy today -Recheck hemoglobin this evening and again in the morning -CT scan of the abdomen and pelvis if colonoscopy is unremarkable Chronic anti-coagulation for PE x2-remote history with chronic anticoagulation. He has received 2 units of fresh frozen plasma and vitamin K. -hold Coumadin -recheck INR/PT in am Maintenance issues -Nutrition-nothing by mouth until after procedures -DVT: SCD -GI; not indicated, EGD negative Disposition: I would anticipate discharge home after the hospital stay Hu Rios MD
[2021-07-15] MEDS: Pravastatin 20 MG Tab PO SCH (08:24)
[2021-07-15] MEDS: Tamsulosin 0.4 MG Cap.ER PO SCH (08:24)
--- NOTE | 2021-07-15 14:28 | OR ---
DATE OF PROCEDURE: 07/14/2021 SURGEON: Lg Tuttle MD PROCEDURE: Esophagogastroduodenoscopy. FINDINGS: 1. Mild inflammation at GE junction. 2. No etiology for anemia. PREOPERATIVE DIAGNOSIS: Anemia. POSTOPERATIVE DIAGNOSIS: Anemia. RISKS: Risks, benefits, alternatives, and limitations including, but not limited to infection, bleeding, perforation, false positives, and false negatives were explained to the patient who wished to proceed. PROCEDURE IN DETAIL: The patient was placed in left lateral decubitus position. The EGD scope was introduced and advanced atraumatically to the second part of the duodenum. No evidence of duodenitis or ulceration. No old or new blood. Within the stomach itself, there was no gastritis. The GE junction showed mild inflammation concerning for reflux disease and was biopsied in all 4 quadrants using cold biopsy forceps. Air was removed from the stomach. The remainder of the esophagus was inspected without abnormality. The patient tolerated the procedure well. Lg Tuttle MD /[id number]
[2021-07-15] MEDS ORDERED: Lactated Ringers 1,000 ML IV SCH (17:30)
[2021-07-16] MEDS ORDERED: Iohexol 647 MG/ML 50 ML SDV PO SCH (03:00)
[2021-07-16] MEDS ORDERED: Iopamidol 612 MG/ML 50 ML SDV ONE (03:24)
[2021-07-16] MEDS ORDERED: Iopamidol 612 MG/ML 50 ML SDV PO ONE (03:24)
[2021-07-16] MEDS ORDERED: Iopamidol 612 MG/ML 150 ML Bottle IV STA (03:59)
--- NOTE | 2021-07-16 05:53 | CRLCT ---
For Patients: As a result of the 21st Century Cures Act, medical imaging exams and procedure reports are released immediately into your electronic medical record. You may view this report before your referring provider. If you have questions, please contact your health care provider. INDICATION: Evaluate for GI bleed. No GI bleed found on EGD or colonoscopy. COMPARISON: None available TECHNIQUE: CT examination of the abdomen and pelvis was performed with the uneventful intravenous administration of 144 cc of Isovue-300 while 3 mm thick axial sections were obtained from the lung bases through the pubic symphysis. Oral contrast was administered. Please note that all CT scans at this facility use dose modulation, iterative reconstruction, and/or weight-based dosing when appropriate to reduce radiation dose to as low as reasonably achievable. FINDINGS: In the abdomen, the liver, spleen, pancreas, and adrenals are normal in appearance. The kidneys are normal in appearance. The gallbladder is normal in appearance. The abdominal aorta is normal in caliber with no sign of dilatation. There is no sign of retroperitoneal mass or adenopathy. The stomach, loops of small bowel, and right: In the abdomen are normal in appearance. There is moderate diverticulosis of the distal descending colon with no sign of diverticulitis. In the pelvis, the appendix is normal in appearance with no sign of inflammatory process. There is moderate proximal sigmoid diverticulosis without evidence of diverticulitis. The loops of small bowel and colon in the pelvis are otherwise normal in appearance. The prostate is moderately enlarged and is otherwise normal in appearance. The urinary bladder is normal in appearance. There is no sign of pelvic or inguinal mass or adenopathy. There is no sign of free air or free fluid in the abdomen or pelvis. There is mild patchy and linear atelectasis in the posterior lung bases. The lung bases are otherwise clear. The osseous structures are normal in appearance for the patient`s age. IMPRESSION: Nothing seen to explain the patient`s GI bleed. CT of the abdomen shows moderate diverticulosis of the distal descending colon with no sign of diverticulitis. CT of the abdomen shows moderate proximal sigmoid diverticulosis with no sign of diverticulitis. Moderate enlargement of the prostate. Please note that all CT scans at this facility use dose modulation, iterative reconstruction, and/or weight-based dosing when appropriate to reduce radiation dose to as low as reasonably achievable. Dictated by Taiwo Curran MD @ 07/16/2021 5:52:17 AM (Electronically Signed)
[2021-07-16] MEDS: Tamsulosin 0.4 MG Cap.ER PO SCH (08:26)
[2021-07-16] MEDS: Pravastatin 20 MG Tab PO SCH (08:26)
[2021-07-16] MEDS ORDERED: Potassium Chloride 20 MEQ Tab.ER PO ONE (09:30)
--- NOTE | 2021-07-16 10:45 | PCM.DCSUM1 ---
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 He was admitted for management of presumed gastrointestinal hemorrhage with anemia due to blood loss. Diagnosis: Stroke: No - Discharge Data Discharge Date: 07/16/21 Discharge Disposition: Home, Self-Care 01 Condition: Good - Referral to Home Health Primary Care Physician: Raza Hancock NP - Discharge Diagnosis/Problem(s) (1) Acute gastrointestinal hemorrhage SNOMED Code(s): 35723431 ICD Code: K92.2 - GASTROINTESTINAL HEMORRHAGE, UNSPECIFIED Status: Acute (2) Anemia due to blood loss, acute SNOMED Code(s): 083678580 ICD Code: D62 - ACUTE POSTHEMORRHAGIC ANEMIA Status: Acute (3) Hx pulmonary embolism SNOMED Code(s): 900924408 ICD Code: Z86.711 - PERSONAL HISTORY OF PULMONARY EMBOLISM Status: Chronic - Patient Summary/Data Consults: Consultations 07/14/21 00:34 Consult to Physician [CONS] Urgent Consulting Provider: Lg Tuttle Call Completed to Consulting Physician: Yes: 07/14/21@00:15 Reason for Consult: lower GI bleed Person Notified: Dr. Tuttle Date Notified: 07/14/21 Time Notified: 00:15 Special Instructions: Hospital Course: Nathan presented to the emergency room with several black stools as well as orthostatic dizziness. Work-up in the emergency room revealed anemia with a hemoglobin of 9.5 and concern for an acute gastrointestinal hemorrhage. The patient was orthostatic and symptomatic. He was admitted to the hospital for further work-up and management. His warfarin was discontinued and he received IV vitamin K. He did receive IV PPI overnight to help treat potential upper GI source. He received IV fluids overnight. The next morning his hemoglobin was down to 7.7. He continued to be producing melena stools. He was borderline hypotensive with systolic pressures in the 90s and ongoing dizziness. His INR remained elevated from normal at 1.8. He was given fresh frozen plasma. We did elect to transfuse 1 unit of blood because of these symptoms and low blood pressure. He was taken to the operating room by Dr. Tuttle and an EGD was performed. This did not show any significant abnormalities. He returned to the room. Throughout the course the day he did get a bowel prep. He continued to have blood or melena in his stool throughout much of the prep but was eventually clear. That evening his hemoglobin remained low despite the transfusion and he received a second unit of blood. The next morning his hemoglobin had finally stabilized. He was taken down for colonoscopy eventually. This showed some old blood and mild diverticulosis. Old blood was noted to be coming through the ileocecal valve but no definite source of bleeding was identified. He had a few more small melena bowel movements but has not had any overnight prior to discharge. His hemoglobin has been stable for more than 24 hours. We did get a CT scan of the abdomen and pelvis the morning of discharge. This did not show an obvious source for bleeding in the abdomen and in particular in the small intestine. He feels well and has tolerated a regular diet. I think he is safe for outpatient management at this time. The plan is for him to stay off warfarin for about a week and then restart. If he has additional episodes he may need capsule endoscopy to further evaluate the small intestine. Occult gastric source is still possible though EGD was unremarkable here. He will follow up with primary care in about a week. - Patient Instructions Diet: Regular Diet as Tolerated Activity: As Tolerated Driving: May Drive Today Showering/Bathing: May Shower Notify Provider of: Nausea and/or Vomiting Other/Special Instructions: 1. You were in the hospital for management of acute gastrointestinal hemorrhage of unclear source. We do suspect that the bleeding came from either your stomach or your small intestine. A definite source was not identified even after upper endoscopy, colonoscopy and a CT scan of your abdomen and pelvis. I suspect that the bleeding came from either a lesion in your stomach or potentially one in your small intestine. The most likely cause of bleeding in the small intestine would be an arteriovenous malformation. The bleeding appears to have stopped at this time and your hemoglobin has been stable. Since this was the first episode I believe we can defer any additional work-up. If you have additional bleeding we should repeat the upper endoscopy and consider a capsule endoscopy to evaluate your small intestine. I would recommend that you stay off of your warfarin through the weekend and then restart dosing on Wednesday. Please seek immediate medical attention if you have additional episodes of large-volume bleeding from your bottom. You may have small quantities of blood over the next couple of days as the remainder of the colon empties out. - Discharge Plan *PRESCRIPTION DRUG MONITORING PROGRAM REVIEWED*: Not Applicable *COPY OF PRESCRIPTION DRUG MONITORING REPORT IN PATIENT LOVE: Not Applicable Home Medications: Home Meds Simvastatin 1 tab PO DAILY 07/13/21 [History] Tamsulosin [Flomax] 1 tab PO DAILY 07/13/21 [History] Warfarin [Coumadin] 0.5 tab PO ASDIRECTED 07/13/21 [History] Warfarin [Coumadin] 1 tab PO DAILY 07/13/21 [History] Oxygen Therapy Mode: Room Air Patient Handouts: Gastrointestinal Bleeding, [id number] Referrals: Coumadin,Clinic [Ordering Only Provider] - 07/24/21 12:30 pm (Arrive 15 minutes early to register for your appointment.) Raza Hancock NP [Primary Care Provider] - 07/24/21 1:00 pm (1 week - F/U GI bleed, recheck hgb. Recheck INR about 07/24) - Discharge Summary/Plan Comment DC Time >30 min.: No Total # of Minutes for Discharge Time: 25 - Patient Data Vitals - Most Recent: Last Vital Signs Temp 36.2 C 07/16/21 07:17 Pulse 75 07/16/21 07:17 Resp 16 07/16/21 07:17 BP 106/57 L 07/16/21 07:17 Pulse Ox 95 07/16/21 07:17 Weight - Most Recent: 96.162 kg I&O - Last 24 hours: Intake & Output 07/15/21 07/16/21 07/16/21 22:59 06:59 14:59 Intake Total 780 1414 480 Output Total 350 200 Balance 430 1214 480 Lab Results - Last 24 hrs: Laboratory Results - last 24 hr 07/15/21 07/16/21 07/16/21 Range/Units 18:32 04:35 05:00 WBC 6.6 (4.5-11.0) K/uL RBC 2.79 L (4.30-5.90) M/uL Hgb 8.3 L 8.2 L (12.0-15.0) g/dL Hct 25.8 L (40.0-54.0) % MCV 93 (80-98) fL MCH 29 (27-31) pg MCHC 32 (32-36) % Plt Count 145 L (150-400) K/uL PT (9.5-12.0) sec INR (0.80-1.20) Sodium 141 (140-148) mmol/L Potassium 3.1 L (3.6-5.2) mmol/L Chloride 108 (100-108) mmol/L Carbon Dioxide 24 (21-32) mmol/L Anion Gap 12.1 (5.0-14.0) mmol/L BUN 12 (7-18) mg/dL Creatinine 1.1 (0.8-1.3) mg/dL Est Cr Clr Drug Dosing 64.15 mL/min Estimated GFR (MDRD) > 60 (>60) Glucose 85 (74-106) mg/dL Calcium 7.7 L (8.5-10.1) mg/dL Phosphorus 2.8 (2.5-4.9) mg/dL Magnesium 1.7 L (1.8-2.4) mg/dL Total Bilirubin 0.4 D (0.2-1.0) mg/dL AST 17 (15-37) U/L ALT 26 (12-78) U/L Alkaline Phosphatase 38 L (46-116) U/L NT-Pro-B Natriuret Pep 1274 H (5-125) pg/mL Total Protein 5.1 L (6.4-8.2) g/dL Albumin 2.8 L (3.4-5.0) g/dL Globulin 2.3 (2.3-3.5) g/dL Albumin/Globulin Ratio 1.2 (1.2-2.2) 07/16/21 Range/Units 05:30 WBC (4.5-11.0) K/uL RBC (4.30-5.90) M/uL Hgb (12.0-15.0) g/dL Hct (40.0-54.0) % MCV (80-98) fL MCH (27-31) pg MCHC (32-36) % Plt Count (150-400) K/uL PT 11.0 (9.5-12.0) sec INR 1.01 (0.80-1.20) Sodium (140-148) mmol/L Potassium (3.6-5.2) mmol/L Chloride (100-108) mmol/L Carbon Dioxide (21-32) mmol/L Anion Gap (5.0-14.0) mmol/L BUN (7-18) mg/dL Creatinine (0.8-1.3) mg/dL Est Cr Clr Drug Dosing mL/min Estimated GFR (MDRD) (>60) Glucose (74-106) mg/dL Calcium (8.5-10.1) mg/dL Phosphorus (2.5-4.9) mg/dL Magnesium (1.8-2.4) mg/dL Total Bilirubin (0.2-1.0) mg/dL AST (15-37) U/L ALT (12-78) U/L Alkaline Phosphatase (46-116) U/L NT-Pro-B Natriuret Pep (5-125) pg/mL Total Protein (6.4-8.2) g/dL Albumin (3.4-5.0) g/dL Globulin (2.3-3.5) g/dL Albumin/Globulin Ratio (1.2-2.2) Med Orders - Current: Current Medications Acetaminophen (Acetaminophen 325 Mg Tab) 650 mg PO Q4H PRN PRN Reason: Pain (Mild 1-3)/fever Last Admin: 07/14/21 17:27 Dose: 650 mg Documented by: Albuterol (Albuterol 0.083% 2.5 Mg/3 Ml Neb Soln) 2.5 mg NEB Q4H PRN PRN Reason: Shortness Of Breath/wheezing Morphine Sulfate (Morphine 2 Mg/Ml Syringe) 2 mg IVPUSH Q2H PRN PRN Reason: Pain (severe 7-10) Ondansetron HCl (Ondansetron 4 Mg/2 Ml Sdv) 4 mg IV Q4H PRN PRN Reason: Nausea/Vomiting Last Admin: 07/14/21 17:35 Dose: 4 mg Documented by: Ondansetron HCl (Ondansetron 4 Mg Tab.Dis) 4 mg PO Q6H PRN PRN Reason: Nausea able to take PO Pravastatin Sodium (Pravastatin 20 Mg Tab) 20 mg PO DAILY [facility] Last Admin: 07/16/21 08:26 Dose: 20 mg Documented by: Tamsulosin HCl (Tamsulosin 0.4 Mg Cap.Er) 0.4 mg PO DAILY [facility] Last Admin: 07/16/21 08:26 Dose: 0.4 mg Documented by: Discontinued Medications Bisacodyl (Bisacodyl 5 Mg Tab) 10 mg PO ONETIME ONE Stop: 07/14/21 13:34 Last Admin: 07/14/21 14:08 Dose: 10 mg Documented by: Fentanyl (Fentanyl 100 Mcg/2 Ml Sdv) Confirm Administered Dose 100 mcg .ROUTE .STK-MED ONE Stop: 07/15/21 07:25 Fentanyl (Fentanyl 100 Mcg/2 Ml Sdv) Confirm Administered Dose 100 mcg .ROUTE .STK-MED ONE Stop: 07/15/21 15:53 Sodium Chloride (Normal Saline) 500 mls @ 1,000 mls/hr IV .BOLUS [facility]ARTINA Last Admin: 07/13/21 23:19 Dose: 1,000 mls/hr Documented by: Phytonadione 5 mg/ Sodium (Chloride) 50.5 mls @ 100 mls/hr IV NOW ONE Stop: 07/14/21 00:15 Last Admin: 07/14/21 00:40 Dose: 100 mls/hr Documented by: Sodium Chloride (Normal Saline) 1,000 mls @ 125 mls/hr IV ASDIRECTED [facility] Last Admin: 07/14/21 08:33 Dose: 125 mls/hr Documented by: Sodium Chloride (Normal Saline) 1,000 mls @ 75 mls/hr IV ASDIRECTED [facility] Last Admin: 07/15/21 04:54 Dose: 75 mls/hr Documented by: Potassium Chloride 20 meq/Lidocaine HCl 2 ml/ Sodium Chloride 112 mls @ 50 mls/hr IV Q2H [facility] Stop: 07/15/21 07:44 Last Admin: 07/15/21 06:39 Dose: Not Given Documented by: Lactated Ringer's (Ringers, Lactated) 1,000 mls @ 100 mls/hr IV ASDIRECTED [facility] Last Admin: 07/16/21 03:16 Dose: 100 mls/hr Documented by: Sodium Chloride (Normal Saline) 84 mls @ 3.5 mls/sec IV ASDIRECTED [facility] Stop: 07/16/21 04:01 Last Admin: 07/16/21 04:50 Dose: 3.5 mls/sec Documented by: Iopamidol (Iopamidol 612 Mg/Ml 50 Ml Sdv) Confirm Administered Dose 50 ml .ROUTE .STK-MED ONE Stop: 07/16/21 03:25 Last Admin: 07/16/21 03:25 Dose: Not Given Documented by: Iopamidol (Iopamidol 612 Mg/Ml 50 Ml Sdv) 50 ml PO ASDIRECTED ONE Stop: 07/16/21 03:25 Last Admin: 07/16/21 03:37 Dose: 50 ml Documented by: Iopamidol (Iopamidol 612 Mg/Ml 150 Ml Bottle) 144 ml IV . DIRECTED STA Stop: 07/16/21 04:00 Last Admin: 07/16/21 04:49 Dose: 144 ml Documented by: Midazolam HCl (Midazolam 1 Mg/Ml 2 Ml Sdv) Confirm Administered Dose 2 mg .ROUTE .STK-MED ONE Stop: 07/15/21 07:25 Midazolam HCl (Midazolam 1 Mg/Ml 2 Ml Sdv) Confirm Administered Dose 2 mg .ROUTE .STK-MED ONE Stop: 07/15/21 15:53 Pantoprazole Sodium (Pantoprazole 40 Mg Vial) 40 mg IVPUSH ONETIME ONE Stop: 07/13/21 22:52 Last Admin: 07/13/21 23:22 Dose: 40 mg Documented by: Pantoprazole Sodium (Pantoprazole 40 Mg Vial) 40 mg IV Q12H [facility] Last Admin: 07/14/21 08:34 Dose: 40 mg Documented by: Polyethylene Glycol (Polyethylene Glycol 3350 Powder 238 Gm Bot) 238 gm PO ONETIME ONE Stop: 07/14/21 13:34 Last Admin: 07/14/21 14:08 Dose: 238 gm Documented by: Potassium Chloride (Potassium Chloride 20 Meq Tab.Er) 40 meq PO ONETIME ONE Stop: 07/16/21 09:31 Propofol (Propofol 200 Mg/20 Ml Sdv) Confirm Administered Dose 200 mg .ROUTE .STK-MED ONE Stop: 07/14/21 08:45 Propofol (Propofol 200 Mg/20 Ml Sdv) Confirm Administered Dose 200 mg .ROUTE .STK-MED ONE Stop: 07/15/21 07:26 Propofol (Propofol 200 Mg/20 Ml Sdv) Confirm Administered Dose 200 mg .ROUTE .STK-MED ONE Stop: 07/15/21 15:52
--- NOTE | 2021-07-24 14:49 | OR ---
DATE OF PROCEDURE: 07/15/2021 SURGEON: Stewart Bowen MD PREOPERATIVE DIAGNOSIS: Recent gastrointestinal bleeding. POSTOPERATIVE DIAGNOSES: Colonoscopy showin. Watery black stool throughout the colon and rectum. 2. Uncomplicated left colonic diverticulosis. 3. Single 8 mm polyp, distal sigmoid colon. OPERATIVE PROCEDURE: Flexible colonoscopy with polypectomy by snare technique. ANESTHESIA: IV sedation. INDICATION FOR PROCEDURE: A 66-year-old male presenting with GI bleeding. By report, the patient was noted to have black stools initially and these remained fairly black throughout the period of bleeding. The patient had a negative upper GI endoscopy per Dr. Tuttle. He is undergoing followup colonoscopy at this time. The potential risks including bleeding and perforation were discussed, and the patient wishes to proceed. DETAILS OF PROCEDURE: The patient was taken to the operative room and placed in a left lateral decubitus position. IV sedation was administered, after which the initial digital rectal exam was performed, it was unremarkable. Colonoscope was then passed to the level of the rectum, where retroflexion revealed uncomplicated hemorrhoidal columns. Scope was eventually passed to the level of the cecum. The prep was quite good. There was some watery black stool throughout the colon and rectum but no bleeding seen. The patient had some left colonic diverticulosis, which was otherwise unremarkable, and a single 8 mm polyp in the distal sigmoid colon that was removed by means of cautery snare technique with good hemostasis having being confirmed, and the specimen evacuated and sent for histologic evaluation. No additional abnormalities were noted. The scope was then withdrawn and the above findings reconfirmed. The presence of black stool both by history as well as on today's exam would suggest more proximal bleeding site is present. This was discussed with Dr. Rios. We will obtain a CT scan of the abdomen and pelvis in the morning. If the patient were to develop some recurrent bleeding with antecedent black stool, one would probably at that point repeat the upper endoscopy to make sure that nothing has been missed. If that is negative, consider a capsule endoscopy to evaluate the small bowel. Stewart Bowen MD /[id number]
== END 2021-07-16 11:36 | disposition home or self-care (01) | DRG 811 ==
LOC: JP.ED 21:56 → JP.MS 23:53
PROVIDERS: ADMIT Hospitalist; ATTEND Internal Medicine
PROC: 30233K1 Transfusion of Nonautologous Frozen Plasma into Peripheral Vein, Percutaneous Approach (ICD-10-PCS; principal; 2021-07-13)
PROC: 30233N1 Transfusion of Nonautologous Red Blood Cells into Peripheral Vein, Percutaneous Approach (ICD-10-PCS; 2021-07-13)
PROC: 0DB48ZX Excision of Esophagogastric Junction, Via Natural or Artificial Opening Endoscopic, Diagnostic (ICD-10-PCS; 2021-07-14)
PROC: 0DBN8ZZ Excision of Sigmoid Colon, Via Natural or Artificial Opening Endoscopic (ICD-10-PCS; 2021-07-15)
DX: K92.1 Melena (principal); R00.0 Tachycardia, unspecified; D62 Acute posthemorrhagic anemia; K57.31 Diverticulosis of large intestine without perforation or abscess with bleeding; E78.00 Pure hypercholesterolemia, unspecified; N40.0 Benign prostatic hyperplasia without lower urinary tract symptoms; Z20.822 Contact with and (suspected) exposure to COVID-19; Z86.718 Personal history of other venous thrombosis and embolism; Z79.01 Long term (current) use of anticoagulants; Z86.711 Personal history of pulmonary embolism; Z79.899 Other long term (current) drug therapy; K20.90 Esophagitis, unspecified without bleeding; I95.9 Hypotension, unspecified
CPT/HCPCS: 36415; 80053; 85025; 85610; 86850; 86900; 86901; 86920; 86922; 93005; C9113; J7030; U0002; 36430; 74177; 80048; 82270; 83735; 83880; 84100; 85018; 85027; 88305; 96374; 99285-25; A9270-GY; J2250; J2405; J2704; J3010; J3430; J3480; J7120; P9016; P9017; Q9967